=== PATIENT | male | born 1965 | race Caucasian/White ===

== ENCOUNTER 2021-04-08 16:35 | Emergency (ER) | payer OTHER ==
[~2021-04-08] VITALS: Ht 185.4 cm; Wt 95.3 kg
[2021-04-08 17:40] LABS: INFLUENZA A ANTIGEN Negative (Negative); INFLUENZA B ANTIGEN Negative (Negative)
[2021-04-08 19:21] LABS: ABSOLUTE LYMPHOCYTES 1.2 thou/uL (0.8-5.3); ABSOLUTE MONOCYTES 0.7 thou/uL (0.0-1.2); ABSOLUTE NEUTROPHILS 3.7 thou/uL (1.6-8.1); BASOPHILS 0.7 %; EOSINOPHILS 0.3 %; HEMATOCRIT 47.3 % (42.0-52.0); HEMOGLOBIN 16.2 gm/dL (14.0-18.0); LYMPHOCYTES 21.4 %; MCH 30.1 pg (26.0-34.0); MCHC 34.2 g/dL (28.0-37.0); MCV 87.9 fL (80.0-100.0); MONOCYTES 11.7 %; MPV 8.1 fl. (7.2-11.1); NUCLEATED RBCS 0 /100WBC; PLATELET COUNT* 188 thou/uL (150-400); POLYS 65.9 %; RBC 5.39 mil/uL (4.50-6.00); RDW-CV 13.4 % (10.5-14.5); WBC 5.6 thou/uL (4.0-11.0)
[2021-04-08 19:35] LABS: CREATININE 1.3 mg/dL (0.6-1.3); POTASSIUM 4.4 mmol/L (3.5-5.1)
[2021-04-08 19:39] LABS: ALBUMIN 3.6 g/dL (3.4-5.0); TOTAL BILIRUBIN 0.5 mg/dL (<0.1-1.0); TOTAL PROTEIN 8.5 g/dL (6.4-8.2)
[2021-04-08] MEDS ORDERED: AUGMENTIN 875-1 EACH PO (20:04)
[2021-04-08] MEDS ORDERED: PROAIR HFA8.5 GM INH (20:05)
[2021-04-08 20:20] VITALS: BP 120/54
--- NOTE | 2021-04-09 12:46 | EKG ---
[place] [address] ELECTROCARDIOGRAM REPORT Name: MELVIN CLIFTON Room: [facility]#: [id number] Admission: 04/08/21 Attend Phys: Discharge: 04/08/21 Date of : 63 Date of Service: 04/08/211819 Report #: [id number] THIS REPORT FOR: //name// [facility] ED Test Date: 2021-04-08 Test Time: 18:20:24 Pat Name: MELVIN CLIFTON Department: Room: Gender: Retail Sales Director: [facility] : 1965 Requested By: Monroe Hines Order Number: [id number] MD: Blaze Hill Measurements Intervals [place] Rate: 117 P: 31 MN: 132 QRS: 59 QRSD: 95 T: 31 QT: 330 QTc: 461 Interpretive Statements Sinus tachycardia Abnormal R-wave progression, late transition Baseline wander in lead(s) II,III,aVF,V1 No previous ECG available for comparison Electronically Signed On 04-09-2021 12:46:04 WAD PRINTING MACHINE OPERATOR by Blaze Hill [email or web address] <ELECTRONICALLY SIGNED> By: Flora Hill MD, [facility] 04/09/21 1246 182 1820 Flora Hill MD, [facility] /EPI
== END 2021-04-08 20:21 | disposition home or self-care (01) ==
LOC: M.ERS 16:35
PROVIDERS: Physician Assistant
DX: J18.9 Pneumonia, unspecified organism (principal); Z20.822 Contact with and (suspected) exposure to COVID-19; R50.9 Fever, unspecified; Z98.890 Other specified postprocedural states; Z88.5 Allergy status to narcotic agent

== ENCOUNTER 2021-04-09 23:35 | Inpatient (IN) | payer OTHER ==
[~2021-04-09] VITALS: Ht 185.4 cm; Wt 102.1 kg
[~2021-04-09 23:35] MED LIST: AUGMENTIN 875-1 EACH PO; PROAIR HFA8.5 GM INH
[2021-04-09 23:40] VITALS: BP 112/54
[2021-04-09 23:58] LABS: ABSOLUTE LYMPHOCYTES 1.1 thou/uL (0.8-5.3); ABSOLUTE MONOCYTES 0.5 thou/uL (0.0-1.2); ABSOLUTE NEUTROPHILS 3.2 thou/uL (1.6-8.1); BASOPHILS 0.4 %; EOSINOPHILS 0.7 %; HEMATOCRIT 40.7 % (42.0-52.0); HEMOGLOBIN 13.8 gm/dL (14.0-18.0); LYMPHOCYTES 23.2 %; MCH 29.9 pg (26.0-34.0); MCHC 33.9 g/dL (28.0-37.0); MONOCYTES 9.9 %; MPV 7.8 fl. (7.2-11.1); NUCLEATED RBCS 0 /100WBC; PLATELET COUNT* 174 thou/uL (150-400); POLYS 65.8 %; RBC 4.62 mil/uL (4.50-6.00); RDW-CV 13.6 % (10.5-14.5); WBC 4.8 thou/uL (4.0-11.0)
[2021-04-10 00:11] LABS: CALCIUM 7.7 mg/dL (8.5-10.1); CREATININE 1.2 mg/dL (0.6-1.3)
[2021-04-10 00:26] LABS: ALBUMIN 3.1 g/dL (3.4-5.0); MAGNESIUM 1.8 mg/dL (1.8-2.4); TOTAL BILIRUBIN 0.4 mg/dL (<0.1-1.0); TOTAL PROTEIN 7.4 g/dL (6.4-8.2)
[2021-04-10 07:45] VITALS: BP 105/55
[2021-04-10 08:34] VITALS: BP 123/71
[2021-04-10 09:00] VITALS: BP 114/71
--- NOTE | 2021-04-10 09:13 | NUR ---
PATIENT TO ROOM 102 VIA WHEELCHAIR. PATIENT IS BEING ADMITTED FOR COVID. PATIENT IS AWAKE AND COOPERATIVE. OXYGEN ON 2 LITERS PER NC. PLACED ON TELEMETRY. SR RATE 74.
--- NOTE | 2021-04-10 10:37 | EKG ---
[place] [address] ELECTROCARDIOGRAM REPORT Name: MELVIN CLIFTON Room: [address] ADM IN .R.#: [id number] Admission: 04/10/21 Attend Phys: Pauline Horta Discharge: Date of : 63 Date of Service: 04/09/21 2357 Report #: [id number] THIS REPORT FOR: //name// [facility] ED Test Date: 2021-04-09 Test Time: 23:57:19 Pat Name: MELVIN CLIFTON Department: Room: [facility] Gender: M Director Sports: [employer] : 1965 Requested By: Funmi Jennings Order Number: [id number] MD: Juan Cevallos Measurements Intervals [place] Rate: 106 P: 24 DE: 144 QRS: 41 QRSD: 97 T: 52 QT: 328 QTc: 436 Interpretive Statements Sinus tachycardia Compared to ECG 04/08/2021 18:20:24 No significant changes Electronically Signed On 04-10-2021 10:37:43 CORRECTIONAL CASE RECORDS SUPERVISOR by Juan Cevallos [email or web address] <ELECTRONICALLY SIGNED> By: Juan Cevallos MD, FACC 04/10/21 1037 2357 2357 Juan Cevallos MD, [facility] /EPI
--- NOTE | 2021-04-10 11:38 | NUR ---
patient is diaphoretic. will check blood sugar.
--- NOTE | 2021-04-10 11:39 | NUR ---
blood sugar 129. continue to monitor patient.
[2021-04-10 12:00] VITALS: BP 112/68
--- NOTE | 2021-04-10 15:54 | NUR ---
CM ATTEMPTED TO CONDUCT ASSESSMENT BY CALLING PT ON CELL AND ROOM NUMBERS, BUT CALLS WERE NOT ANSWERED. CM WAS ABLE TO MAKE CONTACT WITH AUTHORIZED CONTACT (BALTAZAR ROBERTO CARLOS [phone]), BUT MS. AZEVEDO STATED SHE HAS NOT HAD CONTACT WITH PT IN YEARS. CM TO FOLLOWUP.
[2021-04-10 16:00] VITALS: BP 116/74
--- NOTE | 2021-04-10 18:40 | NUR ---
PATIENT HAS BEEN RESTING SINCE HE CAME TO ROOM 102 FROM ER. PATIENT HAS BEEN VERY DIAPHORETIC SINCE HE ARRIVED. PATIENT DENIES PAIN. DOES EAT HIS MEALS. REMAINS IN ISOLATION FOR COVID POSITIVE.
[2021-04-10 20:29] VITALS: BP 117/81
[2021-04-11] VITALS: BP 115/73
[2021-04-11 04:00] VITALS: BP 110/55
--- NOTE | 2021-04-11 04:58 | NUR ---
PT A&OX4, VSS ON 2L O2 NC, IV SALINE LOCKED, NO CO PAIN OR DISCOMFORT, SR ON TELE MONITOR. PT SLEEPING WELL, WILL CONTINUE TO MONITOR.
[2021-04-11 05:07] LABS: ALBUMIN 2.8 g/dL (3.4-5.0); CALCIUM 8.1 mg/dL (8.5-10.1); CREATININE 1.1 mg/dL (0.6-1.3); POTASSIUM 4.1 mmol/L (3.5-5.1)
[2021-04-11 07:23] LABS: TOTAL BILIRUBIN 0.3 mg/dL (<0.1-1.0)
[2021-04-11 08:06] VITALS: BP 120/75
[2021-04-11 11:52] VITALS: BP 110/82
--- NOTE | 2021-04-11 13:49 | NUR ---
RESTING WITHOUT COMPLAINTS. PATIENTS COLOR IS MUCH BETTER TODAY. HE SAYS HE FEELS MUCH BETTER TODAY. PATIENT IS UP AD LAURY IN ROOM.
--- NOTE | 2021-04-11 14:24 | NUR ---
CM ATTEMPTED TO CONTACT PT VIA ROOM PHONE AND CELL NUMBER ([phone]), BUT WAS UNABLE TO MAKE CONTACT. PT NOT YET MED CLEAR. PT ANTICIPATED TO BE MED CLEAR TOMORROW (04/12/21). CM TO FOLLOW.
[2021-04-11 16:00] VITALS: BP 110/82; BP 119/70
--- NOTE | 2021-04-11 18:35 | NUR ---
patient had a quiet day. resting most of the day. up to bathroom as needed. patient receives antibiotics. patient has improved from yesterday. still has scattered crackles both lungs, but is on room air. was wanting to go home today. dr young may discharge him tomorrow
[2021-04-11 20:00] VITALS: BP 110/69
[2021-04-12 04:00] VITALS: BP 108/66
[2021-04-12 05:08] LABS: ALBUMIN 2.7 g/dL (3.4-5.0); CALCIUM 8.2 mg/dL (8.5-10.1); POTASSIUM 3.9 mmol/L (3.5-5.1); TOTAL BILIRUBIN 0.3 mg/dL (<0.1-1.0)
[2021-04-12 08:00] VITALS: BP 126/74
[2021-04-12] MEDS ORDERED: CEFDINIR300 MG PO (10:01)
[2021-04-12] MEDS ORDERED: DECADRON6 MG PO (10:01)
[2021-04-12 12:00] VITALS: BP 121/75
--- NOTE | 2021-04-12 18:03 | NUR ---
CM ATTEMPTED TO CONTACT PT TO COMPLETE ASSESSMENT, BUT WAS UNABLE TO REACH PT VIA ROOM OR CELL PHONE. PT NOT MED CLEAR, BUT MAY BE CLEARED TOMORROW AND MAY NEED HOME O2 AT DC. CM TO FOLLOW.
[2021-04-12 19:28] VITALS: BP 115/85
[2021-04-12 20:00] VITALS: BP 109/81
--- NOTE | 2021-04-12 20:29 | NUR ---
I ASSUMED CARE OF THE PATIENT AT 0700. HE IS ALERT AND ORIENTED X4, BUT VERY DROWSY AND REQUESTING MORE SLEEP. BED IS IN THE LOW LOCKED POSITION AND CALL LIGHT IS IN REACH. PATIENT NEEDS ARE MET DURING HOURLY ROUNDING. PAIN IS MANAGED WITH PRN MEDS. MEDICAID PAPERWORK WAS SIGNED AND PLACED IN CHART AND JONY WAS NOTIFIED. ISOLATION IS MAINTAINED. PATIENT IS HOMELESS AND THINKS HE SHOULD JUST LEAVE. HE STATED LATE IN THE SHIFT THAT HE DOESN'T WANT TO HERE. I EXPLAINED THE BENEFITS OF THE MEDICATIONS HE IS RECEIVING AND EXPLAINED THE IMPORTANCE OF CHANGING POSITIONS AND MOVING AROUND WITHIN THE ROOM. SPUTUM IS ORDERED, BUT PATIENT IS UNABLE TO COUGH ANYTHING UP. HE APPARENTLY HAS 4 FREE NIGHTS AT A LOCAL HOTEL WHEN HE LEAVES HERE, BUT DOESN'T HAVE A PLAN AFTER THAT. WILL CONTINUE TO MONITOR. REPORT GIVEN TO ROQUE PANDA.
[2021-04-13 00:50] VITALS: BP 110/64
[2021-04-13 04:02] VITALS: BP 112/73
[2021-04-13 04:18] LABS: ALBUMIN 2.7 g/dL (3.4-5.0); CREATININE 0.9 mg/dL (0.6-1.3); POTASSIUM 3.8 mmol/L (3.5-5.1); TOTAL BILIRUBIN 0.3 mg/dL (<0.1-1.0); TOTAL PROTEIN 6.9 g/dL (6.4-8.2)
--- NOTE | 2021-04-13 15:02 | NUR ---
CM ATTEMPTED TO CONTACT PT TO COMPLETE ASSESSMENT, BUT COULD NOT REACH PT BY CELL ([phone]) OR ROOM PHONE. PT NOT MED CLEAR. PT ON 3-4L O2. PT IS HOMELESS AND WILL NOT BE ABLE TO TAKE O2 TO GROUP HOME. PT PENDING MED CLEARANCE. CM TO FOLLOW.
[2021-04-13 16:00] VITALS: BP 121/79
--- NOTE | 2021-04-13 19:57 | NUR ---
I ASSUMED CARE OF THE PATIENT AT 0700. HE IS ALERT AND ORIENTED X4 AND IS UP AD LAURY IN THE ROOM . BED IS IN THE LOW LOCKED POSITION AND CALL LIGHT IS IN REACH. PATIENT NEEDS ARE MET DURING HOURLY ROUNDING. GIRLFRIEND BROUGHT HIM SOME HEALTHY SNACKS. HE HAD A SHOWER TODAY AND A LINEN CHANGE. LUNGS SOUND A LITTLE WORSE THAN YESTERDAY. ISOLATION IS MAINTAINED. WILL CONTINUE TO MONITOR.
[2021-04-13 20:13] VITALS: BP 116/65
[2021-04-13 23:00] VITALS: BP 115/63
[2021-04-14 04:00] VITALS: BP 118/62
[2021-04-14 06:07] LABS: ALBUMIN 2.6 g/dL (3.4-5.0); CALCIUM 7.8 mg/dL (8.5-10.1); POTASSIUM 3.8 mmol/L (3.5-5.1); TOTAL BILIRUBIN 0.2 mg/dL (<0.1-1.0); TOTAL PROTEIN 6.4 g/dL (6.4-8.2)
[2021-04-14 08:00] VITALS: BP 119/69
[2021-04-14 12:00] VITALS: BP 110/71
[2021-04-14 15:45] VITALS: BP 110/71
--- NOTE | 2021-04-14 16:57 | NUR ---
CM FOLLOWUP PER RT, PT COMPLETED A REST/EX AND DID NOT REQUIRE AN OXYGEN AT DC. PT MED CLEAR FOR DC HOME.
--- NOTE | 2021-04-15 09:14 | NUR ---
PLEASE NOTE PT WAS DISCHARGED FROM HOSPITAL BEFORE P.T. EVAL COULD BE INITIATED.
== END 2021-04-14 15:50 | disposition home or self-care (01) | DRG 177 ==
LOC: M.ERS 23:35 → M.ORTHSURG 04-10 02:34 → M.TBA-ER 04-10 02:34 → M.ORTHSURG 04-10 09:24
PROVIDERS: Emergency Medicine; Internal Medicine; ADMIT Internal Medicine; ATTEND Internal Medicine
PROC: XW033E5 Introduction of Remdesivir Anti-infective into Peripheral Vein, Percutaneous Approach, New Technology Group 5 (ICD-10-PCS; principal; 2021-04-10)
DX: U07.1 COVID-19 (principal); J96.01 Acute respiratory failure with hypoxia; J12.82 Pneumonia due to coronavirus disease 2019; E86.0 Dehydration; R63.4 Abnormal weight loss; Z88.6 Allergy status to analgesic agent; Z68.29 Body mass index [BMI] 29.0-29.9, adult; Z87.891 Personal history of nicotine dependence; Z80.1 Family history of malignant neoplasm of trachea, bronchus and lung